=== PATIENT | male | born 2000 | race Caucasian/White ===

== ENCOUNTER 2024-04-18 10:39 | Emergency (ER) | payer BC ==
[~2024-04-18] VITALS: Ht 172.7 cm; Wt 83.2 kg
[2024-04-18 10:55] VITALS: BP 128/75
[2024-04-18] MEDS ORDERED: PROAIR HFA0.09 MG/AC IH (11:06)
[2024-04-18] MEDS ORDERED: Promethazine 50 MG/ML 1 ML VIAL IM ONE (11:30)
[2024-04-18] MEDS ORDERED: PHENERGAN 25 TA25 MG PO (11:47)
== END 2024-04-18 12:01 | disposition home or self-care (01) ==
LOC: ED 10:39
DX: A08.4 Viral intestinal infection, unspecified (principal)
CPT/HCPCS: J2550

== ENCOUNTER 2024-07-12 07:04 | Emergency (ER) | payer BC ==
[~2024-07-12] VITALS: Ht 172.7 cm; Wt 81.8 kg
[~2024-07-12 07:04] MED LIST: PHENERGAN 25 TA25 MG PO; PROAIR HFA0.09 MG/AC IH
[2024-07-12] MEDS ORDERED: hydrOXYzine HCl 25 MG TAB PO ONE (07:15)
[2024-07-12] MEDS ORDERED: SINGULAIR 110 MG/TAB PO (07:21)
[2024-07-12 07:28] LABS: BASO # 0.07 K/mm3 (0.02-0.10); EOS # 0.32 K/mm3 (0.04-0.40); EOS % 3.4 % (0.0-4.0); HEMATOCRIT 51.1 % (42.0-52.0); HEMOGLOBIN 17.7 g/dL (13.5-18.0); LYMPH# 1.88 K/mm3 (1.50-4.00); MEAN CELL VOLUME 86 fl (78-100); MEAN CORPUSCULAR HEMOGLOBIN 30 pg (27-31); MEAN CORPUSCULAR HGB CONC 35 g/dL (33-37); MEAN PLATELET VOLUME 8.7 fl (7.4-10.4); MONO # 1.08 K/mm3 (0.20-0.80); NEU # 6.15 K/mm3 (1.40-6.50); PLATELET COUNT 427 K/mm3 (130-400); RED BLOOD COUNT 5.93 M/mm3 (4.20-5.60); RED CELL DISTRIBUTION WIDTH 11.7 % (11.5-14.5); WHITE BLOOD COUNT 9.5 K/mm3 (4.8-10.8)
[2024-07-12 07:36] LABS: ALBUMIN 4.8 g/dL (3.5-5.0)
[2024-07-12 07:37] LABS: CALCIUM 10.1 mg/dL (8.3-10.5)
[2024-07-12 07:39] LABS: TOTAL PROTEIN 8.2 g/dL (6.4-8.3)
[2024-07-12 07:40] LABS: TOTAL BILIRUBIN 1.5 mg/dL (0.2-1.2)
[2024-07-12] MEDS ORDERED: ZOFRAN ODT4 MG PO (08:16)
[2024-07-12] MEDS ORDERED: HYDROXYZINE HYD50 M1 PO (08:16)
[2024-07-12 08:45] VITALS: BP 141/105
== END 2024-07-12 08:45 | disposition home or self-care (01) ==
LOC: ED 07:04
PROVIDERS: Family Medicine
DX: R11.2 Nausea with vomiting, unspecified (principal); F41.9 Anxiety disorder, unspecified; R19.7 Diarrhea, unspecified; E86.0 Dehydration; Z87.09 Personal history of other diseases of the respiratory system
CPT/HCPCS: J7120; Q0177